=== PATIENT | male | born 1965 | race Two or more races ===

== ENCOUNTER 2024-06-13 12:19 | Day surgery (SDC) | payer MEDICAID ==
[2024-06-11 11:24] LABS: Basophils # (auto) 0.1 10 ^3/uL (0-0.2); Basophils % (auto) 0.8 % (0.0-2.0); Eosinophils # (auto) 0.1 10 ^3/uL (0-0.8); Eosinophils % (auto) 1.7 % (0.0-7.0); Hematocrit 42.8 % (41.0-53.0); Hemoglobin 15.3 g/dL (13.5-17.5); Lymphocytes % (auto) 25.1 % (10.0-50.0); Mean Corpuscular Hgb Conc. 35.6 g/dL (32.0-36.0); Mean Corpuscular Volume 86.9 fL (80.0-100.0); Monocytes # (auto) 0.7 10 ^3/uL (0-1.3); Monocytes % (auto) 8.4 % (0.0-12.0); Nucleated Red Blood Cells % 0.2 %; Platelet Count (auto) 254 10^3/uL (140-450); Red Blood Cells 4.93 10^6/uL (4.5-5.90); Red Cell Distribution Width 12.9 % (11.8-14.3); White Blood Cell 7.9 10^3/uL (4.4-10.8)
[2024-06-11 11:43] LABS: INR 0.93 (0.9-1.15); Partial Thromboplastin Time 27.9 SEC (24.5-34.5); Prothrombin Time 9.9 sec (9.3-11.8)
[2024-06-11 12:01] LABS: Alanine Aminotransferase 23 U/L (7-40); Albumin 4.7 g/dL (3.2-4.8); Alkaline Phosphatase 123 U/L (46-116); Anion Gap 8 (5-15); Aspartate Aminotransferase 16 U/L (13-40); BUN/Creatinine Ratio 10.4 (10.0-20.0); Bilirubin, Total 0.5 mg/dL (0.2-1.0); Blood Urea Nitrogen 12 mg/dL (9-23); Calcium 9.5 mg/dL (8.7-10.4); Carbon Dioxide 25 mmol/L (20-30); Chloride 109 mmol/L (98-107); Glucose 173 mg/dL (74-106); Potassium 3.4 mmol/L (3.5-5.1); Sodium 142 mmol/L (136-145); Total Protein 7.8 g/dL (5.7-8.2)
[~2024-06-13] VITALS: Ht 177.8 cm; Wt 83.9 kg
[~2024-06-13 12:19] MED LIST: AMLO1TAB22 PO; LOSA-533 PO; METF-370 PO; METO25TA93 PO
[2024-06-13] MEDS ORDERED: SODIUM CHLORIDE LOCK 10 ML ONE (15:04)
[2024-06-13] MEDS: MIDAZOLAM HCL 5 MG/ML-1ML VIAL ONE (15:23)
[2024-06-13] MEDS: fentaNYL CITRATE 100 MCG/2 ML VL ONE (15:23)
[2024-06-13] MEDS: diphenhdrAMINE HCL 50 MG/1 ML VL ONE (15:23)
[2024-06-13 15:44] VITALS: TEMP 97.9; O2SAT 90
[2024-06-13 16:22] VITALS: BP 127/84; PULSE 61; RESP 12; O2SAT 97
== END 2024-06-13 16:28 | disposition home or self-care (01) ==
LOC: GI 12:19
PROVIDERS: ATTEND Internal Medicine Gastroenterology
DX: R19.4 Change in bowel habit (principal); D12.5 Benign neoplasm of sigmoid colon; K64.8 Other hemorrhoids; K52.9 Noninfective gastroenteritis and colitis, unspecified; K63.89 Other specified diseases of intestine; I10 Essential (primary) hypertension; E11.9 Type 2 diabetes mellitus without complications; Z79.899 Other long term (current) drug therapy
CPT/HCPCS: 36415; 45380; 80053; 82962; 85025; 85610; 85730; 88305; J1200; J2250; J3010; 99152